=== PATIENT | female | born 2000 | race Caucasian/White ===

== ENCOUNTER 2020-11-12 10:17 | Emergency (ER) | payer OTHER ==
[2020-11-12] MEDS ORDERED: Sodium Chloride 0.9% 10 ML Syringe FLUSH PRN (10:38)
--- NOTE | 2020-11-12 10:50 | EDM.PDOC ---
ED HPI GENERAL MEDICAL PROBLEM - General Chief Complaint: [facility] Problem Stated Complaint: 6 WEEKS PREG AND BLEEDING Time Seen by Provider: 11/12/20 10:32 Source of Information: Reports: Patient, RN Notes Reviewed History Limitations: Reports: No Limitations - History of Present Illness INITIAL COMMENTS - FREE TEXT/NARRATIVE: Patient is a 20-year-old female who presents to the ER for her vaginal bleeding, cramping in . Patient believes she is roughly 6 weeks . She is a G1, P0. She has not establish care with [facility] at this time. Patient notes that she is fairly regular with her periods, her last menstrual period started on October 07. She notes that she has had some cramping for the last week, and then developed more severe abdominal cramping and some vaginal bleeding last night. She took a test on November 06, 2020, and it was positive at that time. She states it is hard to quantify how much bleeding she was having, it was somewhere between a pantiliner and a maxi pad, but notes there was some clot-like material in it. She is denying any lightheadedness or dizziness, or any sort of fevers or chills, nausea/vomiting/diarrhea. She den ies any abdomen surgeries. Patient has no other past medical history that she is aware of. - Related Data Allergies Allergy/AdvReac Type Severity Reaction Status Date / Time Sulfa (Sulfonamide Allergy Cannot Verified 11/12/20 10:35 Antibiotics) Remember Home Meds: Home Meds . [No Known Home Meds] 11/12/20 [History] Past Medical History - Past Health History Medical/Surgical History: Denies Medical/Surgical History Social & Family History - Tobacco Use Tobacco Use Status *Q: Never Tobacco User Second Hand Smoke Exposure: No - Caffeine Use Caffeine Use: Reports: Coffee, Energy Drinks, Soda, Tea - Recreational Drug Use Recreational Drug Use: No ED ROS GENERAL - Review of Systems Review Of Systems: Comprehensive ROS is negative, except as noted in HPI. ED EXAM - Physical Exam Exam: See Below Exam Limited By: No Limitations General Appearance: Alert, WD/WN, No Apparent Distress Respiratory/Chest: No Respiratory Distress, Lungs Clear, Normal Breath Sounds, No Accessory Muscle Use, Chest Non-Tender Cardiovascular: Normal Peripheral Pulses, Regular Rate, Rhythm, No Edema GI/Abdominal Exam: Normal Bowel Sounds, Soft, Non-Tender, No Distention, No Mass Heart Tones: Not [place] Movement: Not Appreciated Extremities: Normal Inspection, Normal Capillary Refill Neurological: Alert, Oriented, Normal Cognition, No Motor/Sensory Deficits Psychiatric: Anxious, Tearful Skin Exam: Warm, Dry, Intact, Normal Color, No Rash Course - Vital Signs Last Recorded V/S: Last Vital Signs Temp 97 F 11/12/20 10:38 Pulse 94 11/12/20 10:38 Resp 12 11/12/20 10:38 BP 128/77 11/12/20 10:38 Pulse Ox 98 11/12/20 10:38 - Orders/Labs/Meds Orders: Active Orders 24 hr Category Date Time Status Peripheral IV Care [RC] . DIRECTED Care 11/12/20 10:39 Ordered ABO/RH TYPE [BBK] Stat Lab 11/12/20 10:39 Ordered Sodium Chloride 0.9% [Saline Flush] Med 11/12/20 10:38 Ordered 10 ml FLUSH ASDIRECTED PRN Peripheral IV Insertion Adult [OM.PC] Stat Oth 11/12/20 10:39 Ordered Medication Orders Sodium Chloride (Sodium Chloride 0.9% 10 Ml Syringe) 10 ml FLUSH ASDIRECTED PRN PRN Reason: Keep Vein Open Labs: Laboratory Tests 11/12/20 11/12/20 Range/Units 11:40 11:40 WBC 6.98 (3.98-10.04) K/mm3 RBC 4.80 (3.98-5.22) M/mm3 Hgb 11.7 (11.2-15.7) gm/dl Hct 37.0 (34.1-44.9) % MCV 77.1 L (79.4-94.8) fl MCH 24.4 L (25.6-32.2) pg MCHC 31.6 L (32.2-35.5) g/dl RDW Std Deviation 43.8 (36.4-46.3) fL Plt Count 297 (182-369) K/mm3 MPV 9.3 L (9.4-12.3) fl Neut % (Auto) 62.9 (34.0-71.1) % Lymph % (Auto) 30.5 (19.3-51.7) % [place] % (Auto) 5.7 (4.7-12.5) % Eos % (Auto) 0.6 L (0.7-5.8) Baso % (Auto) 0.3 (0.1-1.2) % Neut # (Auto) 4.39 (1.56-6.13) K/mm3 Lymph # (Auto) 2.13 (1.18-3.74) K/mm3 [place] # (Auto) 0.40 H (0.24-0.36) K/mm3 Eos # (Auto) 0.04 (0.04-0.36) K/mm3 Baso # (Auto) 0.02 (0.01-0.08) K/mm3 HCG, Quant 3.0 mIU/mL Meds: Medications Generic Name Dose Route Start Last Admin Trade Name Freq PRN Reason Stop Dose Admin Sodium Chloride 10 ml 11/12/20 10:38 Sodium Chloride 0.9% 10 Ml Syringe FLUSH ASDIRECTED PRN Keep Vein Open - Re-Assessments/Exams Free Text/Narrative Re-Assessment/Exam: 11/12/20 10:50 Patient presents to the ER for her vaginal bleeding and abdominal cramping in . We will get a transvaginal ultrasound, get IV established, get some baseline labs for further evaluation. 11/12/20 12:36 Patient's laboratory evaluation has returned, CBC is unremarkable, her hCG quantitative level is 3.0. Ultrasound demonstrated no intrauterine seen, minimal blood within the lower uterine segment. Left ovary migrated to the right side, this is of uncertain etiology as the size of the ovaries are within normal limits. It does not appear enlarged to represent definite uterine torsion. I did go over these results with Dr. Mejias, and he does not believe that there would be any suspect torsion at this time as he states she would be in quite a bit more pain. Notes that she can follow-up in clinic with him on Thursday for repeat quantitative hCG and progesterone level. However with the quantitative hCG being at 3.0, this is more likely consistent with spontaneous miscarriage in nature. 11/12/20 13:15 Patient's blood type is A+. Departure - Departure Time of Disposition: 12:38 Disposition: Home, Self-Care 01 Condition: Good Clinical Impression: Incomplete - Discharge Information *PRESCRIPTION DRUG MONITORING PROGRAM REVIEWED*: No *COPY OF PRESCRIPTION DRUG MONITORING REPORT IN PATIENT LISSY: No Instructions: Miscarriage, [id number], Managing Loss Referrals: PCP,None [Primary Care Provider] - Forms: ED Department Discharge Additional Instructions: You were evaluated in the ER today regarding your abdominal pain/vaginal bleeding in . You did have some labs drawn, and these were within normal limits, your hCG level was 3.0 , your blood type is A+. Unfortunately your ultrasound intrauterine at today's visit. That along with the low hCG level, you have most likely suffered a miscarriage at today's visit. Recommend that you do not lift anything heavier than a gallon of milk (5 lbs), do not engage in sexual activities, try to get as much pelvic rest as possible for the next few days. Please try not to exert yourself, rest and relax, and take it easy. If you are bleeding through more than 1-2 maxi pads every couple hours, this would be cause for concern to return to the ER for immediate management. Please follow up with your Dr. Mejias on Thursday in our clinc for repeat labs and re-evaluation. Our Clinic number is [phone]. They should be expecting your call. Just tell them that you need follow up for ER visit. Please return to the ED at any time if your symptoms change or worsen. Sepsis Event Note (ED) - Evaluation Sepsis Screening Result: No Definite Risk - Focused Exam Vital Signs: Vital Signs Temp Pulse Resp BP Pulse Ox 11/12/20 10:38 97 F 94 12 128/77 98 - My Orders Last 24 Hours: My Active Orders 11/12/20 10:38 Sodium Chloride 0.9% [Saline Flush] 10 ml FLUSH ASDIRECTED PRN 11/12/20 10:39 Peripheral IV Care [RC] . DIRECTED ABO/RH TYPE [BBK] Stat Peripheral IV Insertion Adult [OM.PC] Stat - Assessment/Plan Last 24 Hours: My Active Orders 11/12/20 10:38 Sodium Chloride 0.9% [Saline Flush] 10 ml FLUSH ASDIRECTED PRN 11/12/20 10:39 Peripheral IV Care [RC] . DIRECTED ABO/RH TYPE [BBK] Stat Peripheral IV Insertion Adult [OM.PC] Stat
--- NOTE | 2020-11-12 12:17 | US ---
First trimester obstetrical ultrasound: Multiple real-time images were obtained transvaginally. No intrauterine gestational sac is seen. Endometrial thickness is normal measuring 5 mm. There is minimal blood noted within the lower uterine segment. Left ovary is not identified within the left adnexa, it appears to be located within the right side. Right ovary measures 3.1 x 2.0 x 2.4 cm. Left ovary measures 3.4 x 1.9 x 2.3 cm No free fluid is seen. Impression: 1. Left ovary migrated to the right side, this is of uncertain etiology as the size of the ovaries are within normal limits. It does not appear enlarged to represent definite uterine torsion. 2. No intrauterine is seen. Minimal blood within the lower uterine segment is seen. 3. No additional abnormality is seen. Diagnostic code #3
== END 2020-11-12 13:30 | disposition home or self-care (01) ==
LOC: JD.ED 10:17
DX: O03.4 Incomplete spontaneous abortion without complication (principal); Z88.2 Allergy status to sulfonamides
CPT/HCPCS: 36415; 76817; 76817-26; 84702; 85025; 86900; 86901; 99283; 99284-25

== ENCOUNTER 2022-12-30 07:35 | Inpatient (IN) | payer OTHER ==
[2022-12-30] MEDS ORDERED: Lidocaine 1% 50 ML MDV INJECT PRN (07:45)
[2022-12-30] MEDS ORDERED: Lactated Ringers 1,000 ML IV SCH (07:45)
[2022-12-30] MEDS ORDERED: Acetaminophen 325 MG Tab PO PRN ×2 (07:45→16:43)
[2022-12-30] MEDS ORDERED: Calcium Carbonate 500 MG Tab.Chew PO PRN (07:45)
[2022-12-30] MEDS ORDERED: Oxytocin/Lactated Ringers 10 UNIT/1,000 ML BAG IV SCH ×2 (07:45)
[2022-12-30] MEDS ORDERED: Nalbuphine 10 MG/0.5 ML Syringe IVPUSH PRN (07:45)
[2022-12-30] MEDS ORDERED: Ondansetron 4 MG/2 ML SDV IVPUSH PRN (07:45)
[2022-12-30 08:19] LABS: HEMATOCRIT 35.9 % (34.1-44.9); HEMOGLOBIN 11.8 gm/dl (11.2-15.7); MEAN CORPUSCULAR HEMOGLOBIN 26.6 pg (25.6-32.2); MEAN CORPUSCULAR HGB CONC 32.9 g/dl (32.2-35.5); MEAN PLATELET VOLUME 11.6 fl (9.4-12.3); PLATELET COUNT,PLT 182 K/mm3 (182-369); RED BLOOD CELL COUNT 4.43 M/mm3 (3.98-5.22); WHITE BLOOD CELL COUNT,WBC 9.02 K/mm3 (3.98-10.04)
[2022-12-30 09:22] LABS: A/G RATIO 0.5 (1-2); ALBUMIN 2.2 g/dl (3.4-5.0); ANION GAP 14.8 (5-15); BILIRUBIN TOTAL 0.2 mg/dL (0.2-1.0); BUN/CREATININE RATIO 12.5 (14-18); CALCIUM 8.8 mg/dL (8.5-10.1); CREATININE 0.8 mg/dL (0.55-1.02); EST CRCL DRUG DOSING (CG) 91.24 mL/min; POTASSIUM,K 3.8 mEq/L (3.5-5.1); PROTEIN TOTAL,TP 6.7 g/dl (6.4-8.2)
[2022-12-30] MEDS ORDERED: Oxytocin 10 Units/1 ML SDV ONE (14:16)
[2022-12-30] MEDS ORDERED: Witch Hazel Medicated Pads 40/Jar TOP PRN (16:43)
[2022-12-30] MEDS ORDERED: Benzocaine/Menthol 20%-0.5% Spray 78 GM Cannister TOP PRN (16:43)
[2022-12-30] MEDS ORDERED: Oxytocin 10 Units/1 ML SDV IM ONE (16:45)
[2022-12-31] MEDS: Ibuprofen 600 MG Tab PO PRN ×3 (04:13→21:29)
== END 2023-01-01 16:24 | disposition home or self-care (01) | DRG 807 ==
LOC: JD.OB 07:35 → OBSVTOIN 14:11 → JD.OB 14:12
PROVIDERS: ADMIT Obstetrics & Gynecology; ATTEND Obstetrics & Gynecology
PROC: 10E0XZZ Delivery of Products of Conception, External Approach (ICD-10-PCS; principal; 2022-12-30)
PROC: 10907ZC Drainage of Amniotic Fluid, Therapeutic from Products of Conception, Via Natural or Artificial Opening (ICD-10-PCS; 2022-12-30)
PROC: 0HQ9XZZ Repair Perineum Skin, External Approach (ICD-10-PCS; 2022-12-30)
PROC: 3E033VJ Introduction of Other Hormone into Peripheral Vein, Percutaneous Approach (ICD-10-PCS; 2022-12-30)
DX: O14.04 Mild to moderate pre-eclampsia, complicating childbirth (principal); Z37.0 Single live birth; Z3A.37 37 weeks gestation of pregnancy; O99.02 Anemia complicating childbirth; O99.214 Obesity complicating childbirth; O70.1 Second degree perineal laceration during delivery
CPT/HCPCS: 36415; 59025; 59409; 80053; 85027; 86592; 86850; 86900; 86901; A9270-GY; J2001; J2300; J2405; J2590; J7120

== ENCOUNTER 2023-01-26 19:58 | Emergency (ER) | payer OTHER ==
[2023-01-26] MEDS ORDERED: Aluminum Hydroxide/Magnesium Hydroxide/Simethicone Susp 30 ML Cup PO ONE ×2 (20:21→22:06)
[2023-01-26] MEDS ORDERED: Famotidine 20 MG/2 ML SDV IVPUSH STA (20:22)
[2023-01-26] MEDS ORDERED: Ondansetron 4 MG/2 ML SDV IVPUSH ONE (20:23)
[2023-01-26] MEDS ORDERED: Sodium Chloride 0.9% 1,000 ML IV SCH (20:30)
[2023-01-26 20:32] LABS: BASOPHILS ABSOLUTE AUTO 0.03 K/mm3 (0.01-0.08); BASOPHILS PERCENT AUTO 0.3 % (0.1-1.2); EOSINOPHILS ABSOLUTE AUTO 0.12 K/mm3 (0.04-0.36); EOSINOPHILS PERCENT AUTO 1.3 (0.7-5.8); HEMATOCRIT 33.7 % (34.1-44.9); HEMOGLOBIN 10.1 gm/dl (11.2-15.7); IMMATURE GRAN ABSOLUTE AUTO 0.01 K/mm3 (0.00-0.10); IMMATURE GRAN PERCENT AUTO 0.1 % (<=1.0); LYMPHOCYTES ABSOLUTE AUTO 2.68 K/mm3 (1.18-3.74); LYMPHOCYTES PERCENT AUTO 28.7 % (19.3-51.7); MEAN CORPUSCULAR VOLUME 80.2 fl (79.4-94.8); MEAN PLATELET VOLUME 9.5 fl (9.4-12.3); MONOCYTES ABSOLUTE AUTO 0.43 K/mm3 (0.24-0.36); MONOCYTES PERCENT AUTO 4.6 % (4.7-12.5); NEUTROPHILS ABSOLUTE AUTO 6.07 K/mm3 (1.56-6.13); PLATELET COUNT,PLT 348 K/mm3 (182-369); WHITE BLOOD CELL COUNT,WBC 9.34 K/mm3 (3.98-10.04)
[2023-01-26 20:44] LABS: A/G RATIO 0.8 (1-2); ALANINE AMINOTRANSFERASE,ALT 30 U/L (14-59); ALBUMIN 3.3 g/dl (3.4-5.0); ALKALINE PHOSPHATASE 105 U/L (46-116); ANION GAP 13.7 (5-15); ASPARTATE AMNIOTRANSFERASE,AST 28 U/L (15-37); BILIRUBIN TOTAL 0.2 mg/dL (0.2-1.0); BLOOD UREA NITROGEN,BUN 15 mg/dL (7-18); BUN/CREATININE RATIO 16.7 (14-18); CALCIUM 9.1 mg/dL (8.5-10.1); CARBON DIOXIDE,CO2 27 mEq/L (21-32); CHLORIDE,CL 103 mEq/L (98-107); CREATININE 0.9 mg/dL (0.55-1.02); EST CRCL DRUG DOSING (CG) 81.11 mL/min; ESTIMATED GFR 93 mL/min (>60); GLUCOSE RANDOM 111 mg/dL (70-99); LIPASE 93 U/L (73-393); MAGNESIUM 1.7 mg/dL (1.8-2.4); POTASSIUM,K 3.7 mEq/L (3.5-5.1); PROTEIN TOTAL,TP 7.7 g/dl (6.4-8.2); SODIUM,NA 140 mEq/L (136-145)
[2023-01-26] MEDS ORDERED: Iopamidol 755 Mg/ML 100 ML Bottle IVPUSH ONE (20:49)
[2023-01-26 20:50] LABS: TROPONIN I HIGH SENSITIVITY < 4 pg/mL (<=51)
[2023-01-26] MEDS ORDERED: Sodium Chloride 0.9% 100 ML IV SCH (21:00)
[2023-01-26 21:28] LABS: INR 0.96; PROTHROMBIN TIME 10.3 SECONDS (9.7-12.0)
[2023-01-26 21:29] LABS: PTT,PARTIAL THROMBOPLSTIN TIME 25.6 SECONDS (21.7-31.4)
[2023-01-26] MEDS ORDERED: HYDROmorphone 1 MG/ML Syringe IVPUSH ONE (22:05)
== END 2023-01-26 23:45 | disposition home or self-care (01) ==
LOC: JD.ED 19:58
DX: O99.63 Diseases of the digestive system complicating the puerperium (principal); K21.9 Gastro-esophageal reflux disease without esophagitis; O99.215 Obesity complicating the puerperium; Z86.16 Personal history of COVID-19; Z88.2 Allergy status to sulfonamides; Z79.899 Other long term (current) drug therapy
CPT/HCPCS: 36415; 71275; 80053; 83690; 83735; 84484; 85025; 85379; 85610; 85730; 96361; 96374; 96375; 99284; A9270; J1170; J2405; J3490; J7030; Q9967; 93010